=== PATIENT | female | born 1945 | race American Indian/Alaskan Native ===

== ENCOUNTER 2018-03-31 10:54 | Emergency (ER) | payer OTHER ==
[~2018-03-31] VITALS: Ht 167.6 cm; Wt 81.6 kg
[2018-03-31] MEDS ORDERED: SYNTHROID112 MCG PO (11:01)
[2018-03-31] MEDS ORDERED: METOCLOPRAMIDE10 MG PO (15:01)
[2018-03-31] MEDS ORDERED: MECLIZINE HCL25 MG PO (15:01)
== END 2018-03-31 16:03 | disposition home or self-care (01) ==
LOC: ER 10:54
DX: H81.12 Benign paroxysmal vertigo, left ear (principal)